=== PATIENT | male | born 1995 ===

== ENCOUNTER 2022-07-24 23:11 | Emergency (ER) | payer MEDICAID ==
[2022-07-24] MEDS ORDERED: LORazepam 2 MG/ML SDV IVPUSH ONE (23:36)
[2022-07-24] MEDS ORDERED: Lactated Ringers 1,000 ML IV SCH (23:45)
[2022-07-25 00:20] LABS: A/G RATIO 1.2 (0.9-1.6); BILIRUBIN TOTAL 0.4 mg/dL (0.2-1.0); CALCIUM 8.8 mg/dL (8.5-10.1); CARBON DIOXIDE,CO2 29.1 mmol/L (21.0-32.0); CREATININE 1.2 mg/dL (0.8-1.3); EST CRCL DRUG DOSING (CG) 77.8 mL/min; POTASSIUM,K 3.3 mmol/L (3.5-5.1); PROTEIN TOTAL,TP 7.3 g/dL (6.4-8.2)
[2022-07-25 03:06] VITALS: BP 105/54; PULSE 59
== END 2022-07-25 03:05 | disposition home or self-care (01) ==
LOC: MW.ED 23:11
DX: R00.2 Palpitations (principal)
CPT/HCPCS: 36415; 80053; 93005; 96361; 96374; 99284; J2060; J7120; 93010